=== PATIENT | female | born 1955 | race Caucasian/White ===

== ENCOUNTER 2018-07-26 20:23 | Emergency (ER) | payer MEDICAID ==
[~2018-07-26] VITALS: Ht 167.6 cm; Wt 67.1 kg
[~2018-07-26 20:23] MED LIST: ASPI-1169 PO; METO25TA20 PO; SERT50TA PO
--- NOTE | 2018-07-26 20:35 | NUR ---
TO BED 1 BIB EMS C/O REQUESTING DETOX, PT REPORTS HEAVY DRINKING X9 DAYS. LAST DRINK @ 1500 PER PT REPORT. PT AAOX4 NO ACUTE DISTRESS NOTED, RESP EVEN AND UNLABORED. PLACE PT ON CARDAIC MONITORING, CONTINUOUS POX. PENDING ER MD COLE.
[2018-07-26] MEDS ORDERED: IV NS 0.9% 1,000 ML BAG IV ONE (21:00)
[2018-07-26] MEDS ORDERED: ONDANSETRON HCL/PF 4 MG/2 ML VIAL IVP ONE (21:00)
[2018-07-26] MEDS ORDERED: PANTOPRAZOLE 40 MG VIAL IV ONE (21:00)
[2018-07-26 21:13] LABS: BASOPHILS # (AUTO) 0.1 /CMM (0.0-0.2); BASOPHILS % (AUTO) 0.6 % (0.0-2.0); EOSINOPHILS % (AUTO) 0.1 % (0.0-6.0); HEMATOCRIT 39 % (33-45); HEMOGLOBIN 13.5 g/dL (11.5-14.8); LYMPHOCYTES # (AUTO) 1.4 /CMM (0.8-4.8); LYMPHOCYTES % (AUTO) 13.3 % (20.0-44.0); MEAN CORPUSCULAR HGB CONC 34 g/dl (31.0-36.0); MEAN CORPUSCULAR VOLUME 92 fL (82-100); MONOCYTES # (AUTO) 0.5 /CMM (0.1-1.30); MONOCYTES % (AUTO) 4.8 % (2.0-12.0); NEUTROPHILS # (AUTO) 8.4 /CMM (1.8-8.9); NEUTROPHILS % (AUTO) 81.2 % (43.0-81.0); PLATELET COUNT (AUTO) 145 /CMM (150-450); RED BLOOD CELL COUNT(AUTO) 4.28 MIL/uL (4.0-5.2); WHITE BLOOD COUNT (AUTO) 10.3 K/uL (4.3-11.0)
[2018-07-26 21:21] LABS: CALCIUM, SERUM 10.4 mg/dL (8.5-10.1); CARBON DIOXIDE 28 mmol/L (21-32); CHLORIDE 102 mmol/L (98-107); CREATININE 0.7 mg/dL (0.6-1.3); GLUCOSE 99 mg/dL (74-106); POTASSIUM 3.6 mmol/L (3.5-5.1); SODIUM SERUM 143 mmol/L (136-145); UREA NITROGEN, BLOOD 19 mg/dL (7-18)
[2018-07-26 21:22] LABS: SERUM AMMONIA 4 umol/L (11-32)
[2018-07-26 21:27] LABS: ALANINE AMINOTRANSFERASE 50 U/L (12-78); ALBUMIN 4.2 g/dL (3.4-5.0); ALKALINE PHOSPHATASE 124 U/L (46-116); ASPARTATE AMINOTRANSFERASE 78 U/L (15-37); BILIRUBIN,DIRECT 0.2 mg/dL (0.0-0.2); BILIRUBIN,TOTAL 1.3 mg/dL (0.2-1.0); LIPASE 199 U/L (73-393); TOTAL PROTEIN, SERUM 7.9 g/dL (6.4-8.2)
[2018-07-26] MEDS ORDERED: ONDANSETRON HCL/PF 4 MG/2 ML VIAL ONE (21:30)
[2018-07-26] MEDS ORDERED: PANTOPRAZOLE 40 MG VIAL ONE (21:30)
--- NOTE | 2018-07-26 22:05 | NUR ---
PT RESTING QUIETLY, NO ACUTE DISTRESS NOTED, RESP EVEN AND UNLABORED. CALL LIGHT WITHIN REACH. WILL CONTINUE TO MONITOR PT CLOSELY.
[2018-07-26] MEDS ORDERED: ACETAMINOPHEN ES 500 MG TABLET ONE (22:44)
[2018-07-26] MEDS ORDERED: LORAZEPAM INJ 2 MG/ML VIAL ONE (22:47)
[2018-07-26] MEDS ORDERED: LORAZEPAM INJ 2 MG/ML VIAL IV ONE (23:00)
--- NOTE | 2018-07-27 00:29 | NUR ---
PT ASLEEP, NO ACUTE DISTRESS NOTED, RESP EVEN AND UNLABORED. CALL LIGHT WITHIN REACH. WILL CONTINUE TO MONITOR PT CLOSELY.
[2018-07-27 00:36] LABS: APPEARANCE,URINE SL CLOUDY (CLEAR); BILIRUBIN,URINE NEGATIVE (NEGATIVE); BLOOD, URINE 2+ Ery/uL (NEGATIVE); COLOR,URINE YELLOW (YELLOW); KETONES,URINE TRACE (NEGATIVE); LEUKOCYTE ESTERASE ,URINE 1+ (NEGATIVE); NITRITE, URINE NEGATIVE (NEGATIVE); PROTEIN,URINE TRACE mg/dl (NEGATIVE); UGLUCOSE NEGATIVE (NEGATIVE); UROBILINOGEN,URINE 0.2 EU/dL (0.2)
[2018-07-27 00:51] LABS: WBC,URINE 51-80 /HPF (0-3)
[2018-07-27 00:52] LABS: BACTERIA,URINE 2+ /HPF (None Seen); SQUAMOUS EPITHELIAL CELL,UR Few /HPF (None Seen)
[2018-07-27 00:53] LABS: MUCUS,URINE Few /LPF (None Seen)
--- NOTE | 2018-07-27 01:25 | NUR ---
ER MD AT BEDSIDE TO RE-EVAL PT WITH ORDERS RECEIVED. WILL CARRY OUT ORDERS.
[2018-07-27] MEDS ORDERED: LORAZEPAM INJ 2 MG/ML VIAL ONE (01:28)
[2018-07-27] MEDS ORDERED: LORAZEPAM INJ 2 MG/ML VIAL IV ONE (01:30)
--- NOTE | 2018-07-27 01:32 | NUR ---
RN AT BEDSIDE TO MEDICATE PT.
--- NOTE | 2018-07-27 03:26 | NUR ---
IV removed. Catheter intact and site benign. Pressure and 4x4 applied to site. No bleeding noted. Patient discharged to home in stable condition. Written and verbal after care instructions given. Patient verbalizes understanding of instruction. ambulatory with a steady gait noted. pt aaox4 no acute distress noted, resp even and unlabored. advice pt not to drive or operate any machinery due to alcohol intoxication. pt verbalize understanding.
[2018-07-27 03:27] VITALS: BP 129/61
== END 2018-07-27 03:28 | disposition home or self-care (01) ==
LOC: ER 20:25
DX: F10.10 Alcohol abuse, uncomplicated (principal); R00.0 Tachycardia, unspecified; R11.2 Nausea with vomiting, unspecified; Y90.7 Blood alcohol level of 200-239 mg/100 ml; Z85.3 Personal history of malignant neoplasm of breast; Z98.890 Other specified postprocedural states; Z60.2 Problems related to living alone; Z79.82 Long term (current) use of aspirin
CPT/HCPCS: 36415; 80048; 80076; 81001; 82140; 83690; 84484; 85025; 85730; 87077; 87086; 93005; 96361; 96374; 96375; 96376; 99284; A4606; C9113; G0480; J2060 ×2; J2405; J7030; Z7610; 81000-TC

== ENCOUNTER 2018-08-11 23:20 | Emergency (ER) | payer MEDICAID ==
[~2018-08-11] VITALS: Ht 165.1 cm; Wt 59.0 kg
--- NOTE | 2018-08-11 23:20 | NUR ---
PT BIBSELF COMPLAINING OF ALCOHOL WITHDRAWAL. PT STATES SHE WAS AT HOME WITH SON AND WAS FEELING VERY ANXIOUS AND COULD NOT STOP SHAKING. PT ALSO C/O MULTIPLE EPISODES OF VOMITTING PRODUCTION OPERATIONS ENGINEER. PT DENIES CHEST PAIN, SOB, HEADACHE, CHANGE IN VISION. PT AAOX3. RESPIRATIONS EVEN AND UNLABORED. SKIN WARM AND INTACT. VITAL SIGNS STABLE. PT APPEARS ANXIOUS. PLACED ON MONITOR, WILL CONTINUE TO MONITOR
--- NOTE | 2018-08-12 | NUR ---
MD AT BEDSIDE FOR EVALUATION
[2018-08-12] MEDS ORDERED: ONDANSETRON HCL/PF 4 MG/2 ML VIAL ONE (00:13)
[2018-08-12] MEDS ORDERED: LORAZEPAM INJ 2 MG/ML VIAL ONE (00:13)
--- NOTE | 2018-08-12 00:15 | NUR ---
IV INITIATED RIGHT FOREARM 18G LABS DRAWN FROM SITE. REGIONAL SALES ENGINEER AT BEDSIDE FOR COLLECTION. IV INTACT AND PATENT, PLACED ON SALINE LOCK
[2018-08-12 00:26] LABS: BASOPHILS # (AUTO) 0.1 /CMM (0.0-0.2); BASOPHILS % (AUTO) 1.1 % (0.0-2.0); EOSINOPHILS % (AUTO) 0.3 % (0.0-6.0); HEMATOCRIT 34 % (33-45); HEMOGLOBIN 11.5 g/dL (11.5-14.8); LYMPHOCYTES # (AUTO) 1.4 /CMM (0.8-4.8); LYMPHOCYTES % (AUTO) 27.5 % (20.0-44.0); MEAN CORPUSCULAR HGB CONC 34 g/dl (31.0-36.0); MEAN CORPUSCULAR VOLUME 96 fL (82-100); MONOCYTES # (AUTO) 0.4 /CMM (0.1-1.30); MONOCYTES % (AUTO) 7.8 % (2.0-12.0); NEUTROPHILS # (AUTO) 3.2 /CMM (1.8-8.9); NEUTROPHILS % (AUTO) 63.3 % (43.0-81.0); PLATELET COUNT (AUTO) 296 /CMM (150-450); RED BLOOD CELL COUNT(AUTO) 3.51 MIL/uL (4.0-5.2); WHITE BLOOD COUNT (AUTO) 5.1 K/uL (4.3-11.0)
[2018-08-12] MEDS ORDERED: LORAZEPAM INJ 2 MG/ML VIAL IV ONE (00:30)
[2018-08-12] MEDS ORDERED: IV NS 0.9% 1,000 ML BAG IV ONE (00:30)
[2018-08-12] MEDS ORDERED: ONDANSETRON HCL/PF 4 MG/2 ML VIAL IVP ONE (00:30)
[2018-08-12 00:39] LABS: CALCIUM, SERUM 9.2 mg/dL (8.5-10.1); CREATININE 0.6 mg/dL (0.6-1.3); POTASSIUM 4.4 mmol/L (3.5-5.1)
[2018-08-12 00:54] LABS: ALBUMIN 3.5 g/dL (3.4-5.0); BILIRUBIN,DIRECT 0.1 mg/dL (0.0-0.2); BILIRUBIN,TOTAL 0.2 mg/dL (0.2-1.0); TOTAL PROTEIN, SERUM 6.6 g/dL (6.4-8.2)
--- NOTE | 2018-08-12 01:30 | NUR ---
PT RESTING COMFORTABLY IN BED. VITAL SIGNS STABLE. WILL CONTINUE TO MONITOR
--- NOTE | 2018-08-12 03:26 | NUR ---
CALLED PT'S SON FOR INSTRUMENT AND CONTROLS TECHNICIAN. LEFT MESSAGE. WAITING FOR CALL BACK
[2018-08-12] MEDS ORDERED: DIAZEPAM 5 MG TABLET ONE (03:50)
--- NOTE | 2018-08-12 03:55 | NUR ---
Patient discharged to home in stable condition. Written and verbal after care instructions given. Patient verbalizes understanding of instruction. IV removed. Catheter intact and site benign. Pressure and 4x4 applied to site. No bleeding noted. Pt ambulatory with a steady gait
[2018-08-12 03:56] VITALS: BP 95/61
[2018-08-12] MEDS ORDERED: DIAZEPAM 10 MG TABLET PO ONE (04:00)
== END 2018-08-12 03:57 | disposition home or self-care (01) ==
LOC: ER 23:23
DX: F10.229 Alcohol dependence with intoxication, unspecified (principal); F41.9 Anxiety disorder, unspecified; R11.2 Nausea with vomiting, unspecified; Y90.7 Blood alcohol level of 200-239 mg/100 ml; Z85.3 Personal history of malignant neoplasm of breast; Z98.82 Breast implant status; Z98.890 Other specified postprocedural states; Z60.2 Problems related to living alone; Z79.82 Long term (current) use of aspirin
CPT/HCPCS: 36415; 80048-TC; 80076-TC; 83690-TC; 85025-TC; G0480; J2060; J2405; J7030

== ENCOUNTER 2019-09-17 19:41 | Emergency (ER) | payer MEDICAID ==
[~2019-09-17] VITALS: Ht 167.6 cm; Wt 59.0 kg
--- NOTE | 2019-09-17 19:41 | NUR ---
CAME IN FOR "SPINAL PAIN RADIATES TO HEAD, EXTREME PAIN BEHIND MY EYEBALL". SEEN AT [facility] X2 THIS MONTH WITH SPINAL TAP AND WAS SEEN BY PMD TODAY AND [facility]. TO ER BED 7, HOOKED TO MONITOR, CHANGED TO HOSP GOWN, WARM BLANKET PROVIDED, AWAITING MD COLE.
--- NOTE | 2019-09-17 19:58 | NUR ---
DR HINTON AT BEDSIDE
[2019-09-17] MEDS ORDERED: MORPHINE SULFATE INJ 4 MG/ML DISP.SYRIN ONE (20:06)
--- NOTE | 2019-09-17 20:20 | NUR ---
CALLED [facility] TO REQUEST MEDICAL RECORDS FOR PT.
[2019-09-17] MEDS ORDERED: ONDANSETRON HCL/PF 4 MG/2 ML VIAL ONE (20:21)
[2019-09-17] MEDS ORDERED: MORPHINE SULFATE INJ 2 MG/ML DISP.SYRIN IV ONE (20:30)
[2019-09-17] MEDS ORDERED: IV NS 0.9% 1,000 ML BAG IV ONE (20:30)
[2019-09-17] MEDS ORDERED: ONDANSETRON HCL/PF 4 MG/2 ML VIAL IVP ONE (20:30)
[2019-09-17 20:43] LABS: BASOPHILS % (AUTO) 0.8 % (0.0-2.0); EOSINOPHILS % (AUTO) 1.5 % (0.0-6.0); HEMATOCRIT 32 % (33-45); HEMOGLOBIN 10.8 g/dL (11.5-14.8); LYMPHOCYTES # (AUTO) 1.5 /CMM (0.8-4.8); LYMPHOCYTES % (AUTO) 36.1 % (20.0-44.0); MEAN CORPUSCULAR HGB CONC 34 g/dl (31.0-36.0); MEAN CORPUSCULAR VOLUME 97 fL (82-100); MONOCYTES # (AUTO) 0.3 /CMM (0.1-1.30); MONOCYTES % (AUTO) 7.8 % (2.0-12.0); NEUTROPHILS # (AUTO) 2.3 /CMM (1.8-8.9); NEUTROPHILS % (AUTO) 53.8 % (43.0-81.0); PLATELET COUNT (AUTO) 139 /CMM (150-450); RED BLOOD CELL COUNT(AUTO) 3.33 MIL/uL (4.0-5.2); WHITE BLOOD COUNT (AUTO) 4.2 K/uL (4.3-11.0)
--- NOTE | 2019-09-17 20:54 | NUR ---
WHEELED OUT VIA RNEY FOR CT SCAN
[2019-09-17 20:58] LABS: CALCIUM, SERUM 9.2 mg/dL (8.5-10.1); POTASSIUM 3.3 mmol/L (3.5-5.1)
[2019-09-17 21:03] LABS: ALBUMIN 3.5 g/dL (3.4-5.0); BILIRUBIN,DIRECT 0.1 mg/dL (0.0-0.2); BILIRUBIN,TOTAL 0.4 mg/dL (0.2-1.0); TOTAL PROTEIN, SERUM 6.3 g/dL (6.4-8.2)
--- NOTE | 2019-09-17 22:09 | NUR ---
IV removed. Catheter intact and site benign. Pressure and 4x4 applied to site. No bleeding noted.Patient discharged to home in stable condition. Written and verbal after care instructions given. Patient verbalizes understanding of instruction.
[2019-09-17 22:10] VITALS: BP 124/86
== END 2019-09-17 22:11 | disposition home or self-care (01) ==
LOC: ER 19:41
DX: R51 Headache (principal); M54.5 Low back pain; F10.10 Alcohol abuse, uncomplicated; R00.1 Bradycardia, unspecified; I44.4 Left anterior fascicular block; Y90.9 Presence of alcohol in blood, level not specified; Z98.890 Other specified postprocedural states; Z60.2 Problems related to living alone; Z79.82 Long term (current) use of aspirin; Z79.899 Other long term (current) drug therapy; Z85.3 Personal history of malignant neoplasm of breast
CPT/HCPCS: 36415; 70450; 71045; 72131; 80048; 80076; 85025; 85730; 93005; 96374; 96375; 99284; J2270; J2405; J7030

== ENCOUNTER 2019-09-19 04:05 | Emergency (ER) | payer MEDICAID ==
[~2019-09-19] VITALS: Ht 167.6 cm; Wt 59.0 kg
[2019-09-19 04:05] VITALS: BP 120/67
--- NOTE | 2019-09-19 04:42 | NUR ---
Pt left w/ son without discharge instructions.
== END 2019-09-19 04:45 | disposition home or self-care (01) ==
LOC: ER 04:05
DX: F10.129 Alcohol abuse with intoxication, unspecified (principal); G89.29 Other chronic pain; M54.9 Dorsalgia, unspecified; Z60.2 Problems related to living alone; Z85.3 Personal history of malignant neoplasm of breast; Z79.899 Other long term (current) drug therapy; Z79.82 Long term (current) use of aspirin; Y90.9 Presence of alcohol in blood, level not specified

== ENCOUNTER 2021-04-08 17:16 | Inpatient (IN) | payer MEDICARE, OTHER ==
[~2021-04-08] VITALS: Ht 167.6 cm; Wt 59.9 kg
[2021-04-08] MEDS ORDERED: ONDANSETRON HCL/PF 4 MG/2 ML VIAL ONE (17:25)
[2021-04-08] MEDS ORDERED: ONDANSETRON HCL/PF 4 MG/2 ML VIAL IVP ONE (17:30)
[2021-04-08] MEDS ORDERED: IV NS 0.9% 1,000 ML BAG IV ONE (17:30)
[2021-04-08 17:45] LABS: BASOPHILS % (AUTO) 0.4 % (0.0-2.0); HEMATOCRIT 35 % (33-45); LYMPHOCYTES # (AUTO) 1.1 K/uL (0.8-4.8); LYMPHOCYTES % (AUTO) 13.9 % (20.0-44.0); MEAN CORPUSCULAR HGB CONC 34 g/dl (31.0-36.0); MEAN CORPUSCULAR VOLUME 93 fL (82-100); MONOCYTES # (AUTO) 0.6 K/uL (0.1-1.30); MONOCYTES % (AUTO) 8.5 % (2.0-12.0); NEUTROPHILS # (AUTO) 5.8 K/uL (1.8-8.9); NEUTROPHILS % (AUTO) 77.2 % (43.0-81.0); PLATELET COUNT (AUTO) 141 K/uL (150-450); RED BLOOD CELL COUNT(AUTO) 3.75 MIL/uL (4.0-5.2); WHITE BLOOD COUNT (AUTO) 7.6 K/uL (4.3-11.0)
[2021-04-08 17:53] LABS: CREATININE 0.7 mg/dL (0.6-1.3); POTASSIUM 3.5 mmol/L (3.5-5.1)
[2021-04-08 18:00] LABS: ALBUMIN 4.1 g/dL (3.4-5.0); BILIRUBIN,DIRECT 0.3 mg/dL (0.0-0.2); BILIRUBIN,TOTAL 1.1 mg/dL (0.2-1.0); TOTAL PROTEIN, SERUM 7.1 g/dL (6.4-8.2)
[2021-04-08 18:30] LABS: BILIRUBIN,URINE NEGATIVE (NEGATIVE); COLOR,URINE YELLOW (YELLOW); LEUKOCYTE ESTERASE ,URINE TRACE (NEGATIVE); NITRITE, URINE NEGATIVE (NEGATIVE); PROTEIN,URINE 100 mg/dl (NEGATIVE); UGLUCOSE NEGATIVE (NEGATIVE)
[2021-04-08 18:38] LABS: RBC,URINE 21-50 /HPF (0-2)
[2021-04-08 18:39] LABS: BACTERIA,URINE 3+ /HPF (None Seen); SQUAMOUS EPITHELIAL CELL,UR 0-2 /HPF (None Seen)
--- NOTE | 2021-04-08 19:05 | NUR ---
pt bibra c/o chest pain, 2 empty bottles of alcohol found on scene. Pt aaox4 breathing evenly and unlabored. Pt attached to monitor and pox. Skin is warm and dry. pt given blanket and call light within reach
--- NOTE | 2021-04-08 20:45 | NUR ---
verbal order 1L NS
[2021-04-08] MEDS ORDERED: ASPIRIN EC 81 MG TABLET.DR PO ONE (21:42)
--- NOTE | 2021-04-08 21:57 | NUR ---
EPIC PAGED FOR PANEL
[2021-04-08] MEDS ORDERED: ASPIRIN 81 MG TAB.CHEW PO ONE (22:00)
--- NOTE | 2021-04-08 22:00 | NUR ---
MIKI MOHAMUD SPEAKING WITH DR. AWAN.
--- NOTE | 2021-04-08 22:12 | NUR ---
CALLED NURSING SUGAR REFINERY SUPERVISOR FOR BED.
[2021-04-08] MEDS ORDERED: MAGNESIUM HYDROXIDE 30 ML UDC PO PRN (22:30)
[2021-04-08] MEDS ORDERED: MAG HYDROX/AL HYDROX/SIMETH 30 ML UDC PO PRN (22:30)
[2021-04-08] MEDS ORDERED: Z GUARD REMEDY 2 OZ OINT TP PRN (22:30)
--- NOTE | 2021-04-08 22:33 | NUR ---
harry sent to lab
--- NOTE | 2021-04-08 22:33 | NUR ---
lab at bedside
--- NOTE | 2021-04-08 23:44 | NUR ---
gave report to ALVERTO Dietrich for pamela
[2021-04-09] MEDS ORDERED: CEFTRIAXONE 1 G in IV D5W 50 ML IV ONE
[2021-04-09] MEDS ORDERED: IV NS 0.9% 500 ML BAG IV ONE (00:30)
[2021-04-09] MEDS: IV D5/0.45 NACL 1,000 ML IV PRN ×3 (00:42→19:49)
[2021-04-09 01:00] VITALS: BP 95/54
[2021-04-09] MEDS: ENOXAPARIN SODIUM 40 MG/0.4 ML DISP.SYRIN SQ SCH ×2 (01:07→21:44)
[2021-04-09] MEDS ORDERED: TIZA4CAP PO (01:33)
[2021-04-09] MEDS ORDERED: IBUP-1953 PO (01:33)
[2021-04-09] MEDS ORDERED: ANAS1TAB50 PO (01:33)
[2021-04-09] MEDS ORDERED: MELA5TAB PO (01:33)
[2021-04-09] MEDS ORDERED: CEFTRIAXONE 1 G VIAL ONE (02:14)
[2021-04-09] MEDS: LORAZEPAM INJ 2 MG/ML VIAL IV PRN ×4 (02:46→23:22)
--- NOTE | 2021-04-09 02:56 | NUR ---
MS/TELE/RN PATIENT VERY AGITATED, RESTLESS AND CLUMSY, SAYING " PLEASE HELP ME", ATIVAN 1 MG IVP WAS GIVEN ORDERED. WILL MONITOR.
--- NOTE | 2021-04-09 02:58 | NUR ---
MS/TELE/RN ADMITTED PATIENT FROM [facility] AT 0025 VIA [facility]. PATIENT WAS AWAKE, ALERT, ORIENT, MILDLY ANXIOUS, NO C/O PAIN, NO DISTRESS NOTED, MADE COMFORTABLE IN BED, ADMISSION DONE PER PROTOCOL, PATIENT REFUSED PHYSICAL ASSESSMENT BUT AGREED TO HAVE PICTURE TAKEN ON BRUISES ON LEFT KNEE AND LEFT ELBOW. PLAN OF CARE DISCUSSED, VERBALISED UNDERSTANDING AND AGREEMENT, TAUGHT THE USE OF CALL LIGHT AND PLACED AT BEDSIDE WITHIN REACH. DIOR OF $1,645 WAS NOTED AND AGREED TO SEND IT TO [facility], MEDICATIONS BOTTLES NOTED AND WILL BE SENT TO PHARMACY. FALL PRECAUTIONS PER PROTOCOL WAS IMPLEMENTED. WILL MONITOR.
--- NOTE | 2021-04-09 03:51 | NUR ---
MS/TELE/RN PATIENT IS SLEEPING, APPEAR COMFORTABLE, NO SIGNS OF DISTRESS NOTED, CALL LIGHT IN REACH, WILL CONTINUE TO MONITOR.
[2021-04-09] MEDS ORDERED: TRAZ-257 PO (03:54)
--- NOTE | 2021-04-09 06:21 | NUR ---
MS/TELE/RN PATIENT IS STILL SLEEPING AT THIS TIME, APPEAR COMFORTABLE, NO SIGNS OF DISTRESS NOTED, CALL LIGHT IN REACH, ALL NEEDS ATTENDED AT THIS TIME, WILL CONTINUE TO MONITOR.
[2021-04-09 06:28] LABS: BASOPHILS % (AUTO) 0.6 % (0.0-2.0); EOSINOPHILS % (AUTO) 0.6 % (0.0-6.0); HEMATOCRIT 26 % (33-45); MEAN CORPUSCULAR HGB CONC 34 g/dl (31.0-36.0); MEAN CORPUSCULAR VOLUME 95 fL (82-100); MONOCYTES # (AUTO) 0.2 K/uL (0.1-1.30); MONOCYTES % (AUTO) 5.5 % (2.0-12.0); NEUTROPHILS # (AUTO) 2.7 K/uL (1.8-8.9); NEUTROPHILS % (AUTO) 68.3 % (43.0-81.0); PLATELET COUNT (AUTO) 93 K/uL (150-450); RED BLOOD CELL COUNT(AUTO) 2.77 MIL/uL (4.0-5.2); WHITE BLOOD COUNT (AUTO) 3.9 K/uL (4.3-11.0)
[2021-04-09 06:54] LABS: BILIRUBIN,TOTAL 0.8 mg/dL (0.2-1.0); CREATININE 0.7 mg/dL (0.6-1.3); MAGNESIUM 1.8 mg/dL (1.8-2.4); PHOSPHORUS 1.8 mg/dL (2.5-4.9); POTASSIUM 2.9 mmol/L (3.5-5.1); TOTAL PROTEIN, SERUM 5.4 g/dL (6.4-8.2)
--- NOTE | 2021-04-09 07:16 | NUR ---
MS/TELE/RN PATIENT IS AWAKE, VERY ANXIOUS, STATING SHE WAS SHAKING AND ASKING FOR ATIVAN, ATIVAN 1 MG IVP WAS GIVEN ORDERED. WILL MONITOR.
[2021-04-09 08:00] VITALS: BP 84/54
[2021-04-09 08:47] LABS: LYMPHOCYTES % (MANUAL) 28 % (16-48); MONOCYTES % (MANUAL) 3 % (0-11.0); NEUTROPHILS % (MANUAL) 69 (42-76)
[2021-04-09] MEDS ORDERED: THIAMINE HCL 100 MG TABLET PO ONE (09:00)
[2021-04-09] MEDS: PANTOPRAZOLE 40 MG VIAL IV SCH (09:12)
[2021-04-09] MEDS: FOLIC ACID 1 MG TABLET PO SCH (09:13)
[2021-04-09] MEDS: ASPIRIN EC 325 MG TABLET.DR PO SCH (09:13)
[2021-04-09] MEDS: POTASSIUM CL. PREMIX PERIPHER. 50 ML IV SCH ×4 (09:50→17:01)
[2021-04-09] MEDS ORDERED: K PHOS NEUTRAL 250 MG TABLET PO ONE (10:30)
[2021-04-09] MEDS ORDERED: POTASSIUM CHLORIDE 20 MEQ TAB.PRT.SR PO SCH (10:30)
[2021-04-09] MEDS ORDERED: IV NS 0.9% 1,000 ML IV ONE (11:00)
--- NOTE | 2021-04-09 12:55 | NUR ---
denice tyson in and given bolus as per orders.additionally in process of kcl iv boluses and k-dur and neutra phos replacements.
[2021-04-09 16:11] VITALS: BP 117/70
--- NOTE | 2021-04-09 16:51 | NUR ---
given ativan for nerves.
[2021-04-09 20:00] VITALS: BP 106/53
--- NOTE | 2021-04-09 20:16 | NUR ---
MS/TELE/RN RECEIVED PATIENT IN BED SLEEPING, APPEAR COMFORTABLE, NO DISTRESS NOTED, IVF INFUSING, CALL LIGHT IN REACH, WILL MONITOR.
[2021-04-09] MEDS: CEFTRIAXONE 1 G in IV D5W 50 ML IV SCH (21:27)
--- NOTE | 2021-04-09 23:29 | NUR ---
MS/TELE/RN PATIENT IS AWAKE, ANXIOUS, CLUMSY AND SHAKING, PATIENT ASKED FOR ATIVAN, ATIVAN 1 MG IVP WAS GIVEN ORDERED. BP 142/100, HR 103. WILL MONITOR.
[2021-04-10] VITALS: BP 142/100
--- NOTE | 2021-04-10 00:47 | NUR ---
MS/TELE/RN PATIENT IS SLEEPING AT THIS TIME, APPEARS COMFORTABLE, NO SIGNS OF DISTRESS NOTED, CALL LIGHT IN REACH. WILL CONTINUE TO MONITOR.
[2021-04-10 04:00] VITALS: BP 134/77
[2021-04-10] MEDS: IV D5/0.45 NACL 1,000 ML IV PRN ×2 (05:01→16:38)
--- NOTE | 2021-04-10 06:09 | NUR ---
MS/TELE/RN PATIENT IS SLEEPING, APPEAR COMFORTABLE, NO SIGNS OF DISTRESS NOTED, CALL LIGHT IN REACH, ALL NEEDS ATTENDED AT THIS TIME, WILL CONTINUE TO MONITOR.
[2021-04-10 06:52] LABS: BASOPHILS % (AUTO) 0.7 % (0.0-2.0); EOSINOPHILS % (AUTO) 1.3 % (0.0-6.0); HEMATOCRIT 27 % (33-45); HEMOGLOBIN 9.2 g/dL (11.5-14.8); LYMPHOCYTES # (AUTO) 1.2 K/uL (0.8-4.8); LYMPHOCYTES % (AUTO) 30.4 % (20.0-44.0); MEAN CORPUSCULAR HGB CONC 34 g/dl (31.0-36.0); MEAN CORPUSCULAR VOLUME 96 fL (82-100); MONOCYTES # (AUTO) 0.2 K/uL (0.1-1.30); NEUTROPHILS # (AUTO) 2.5 K/uL (1.8-8.9); NEUTROPHILS % (AUTO) 62.6 % (43.0-81.0); PLATELET COUNT (AUTO) 85 K/uL (150-450)
--- NOTE | 2021-04-10 07:24 | NUR ---
APPLICATION DEVELOPMENT PROJECT MANAGER OPENING NOTES RECEIVED PATIENT RESTING IN BED. A/O X4. ABLE TO MAKE NEEDS KNOWN, DENIES PAIN OR ANY DISCOMFORTS AT THIS TIME. ON ROOM AIR, BREATHING EVEN AND UNLABORED, NO SOB NOTED. CURRENT TELE-MONITOR READING IS SINUS RHYTHM, HR ON THE 80'S, NO C/O CARDIAC DISTRESS VOICED. IV ACCESS ON LEFT WRIST G#20 INTACT WITH IVF OF D5W 1/2 NS AT 125ML/HR INFUSING WELL, NO S/S OF INFILTRATIONS AT SITE NOTED. SAFETY MEASURES IN PLACE: BED IN LOWEST LOCKED POSITION WITH SIDE-RAILS UP X2. CALL LIGHT W/IN REACH. WILL CONTINUE TO MONITOR PT ACCORDINGLY.
[2021-04-10 07:34] LABS: CALCIUM, SERUM 8.6 mg/dL (8.5-10.1); CREATININE 0.6 mg/dL (0.6-1.3); MAGNESIUM 1.7 mg/dL (1.8-2.4); PHOSPHORUS 3.5 mg/dL (2.5-4.9); POTASSIUM 3.6 mmol/L (3.5-5.1)
[2021-04-10 08:00] VITALS: BP 147/79
[2021-04-10] MEDS: ASPIRIN EC 325 MG TABLET.DR PO SCH (08:24)
[2021-04-10] MEDS: ANASTROZOLE 1 MG TABLET PO SCH (08:24)
[2021-04-10] MEDS: PANTOPRAZOLE 40 MG VIAL IV SCH (08:24)
[2021-04-10] MEDS: FOLIC ACID 1 MG TABLET PO SCH (08:24)
[2021-04-10] MEDS: LORAZEPAM INJ 2 MG/ML VIAL IV PRN (09:19)
--- NOTE | 2021-04-10 09:24 | NUR ---
RN NOTES PT NOTED VERY ANXIOUS AND REQUESTED FOR HER ATIVAN. PRN ATIVAN 1MG/0.5 ML IVP ADMINISTERED AT 0919. WILL CONTINUE TO MONITOR.
[2021-04-10] MEDS: Magnesium 1GM/D5W 100ML PREMIX 100 ML IV SCH ×2 (11:04→12:16)
[2021-04-10 12:00] VITALS: BP 124/71
[2021-04-10 16:00] VITALS: BP 128/84
--- NOTE | 2021-04-10 17:29 | NUR ---
RN NOTES PT VERY ANXIOUS AND ASKING FOR HER ATIVAN IV. INFORMED HER THAT HER ATIVAN 1MG IV WAS DISCONTINUED. SHE SAID TO ASK HER HOSPITALIST FOR ANYTHING TO CALM HER DOWN BECAUSE SHE'S VERY ANXIOUS AND RESTLESS. HELEN CHANDLER MADE AWARE WITH ORDER TO GIVE ATIVAN 1MG PO X 1 DOSE ONLY. MED WAS GIVEN ORDERED AT 1724.
[2021-04-10] MEDS ORDERED: LORAZEPAM 1 MG TABLET PO ONE (17:30)
--- NOTE | 2021-04-10 18:44 | NUR ---
WAX POT TENDER CLOSING NOTES PATIENT IN BED WATCHING TV AT THIS TIME. HOB ELEVATED. A/O X4. ABLE TO MAKE NEEDS KNOWN. ON ROOM AIR, BREATHING EVEN AND UNLABORED, NO SOB NOTED DURING THE SHIFT. ON EXTERNAL CARDIAC TELE-MONITOR WITH CURRENT READING OF NSR, HR ON THE 70-80'S, NO C/O CARDIAC DISTRESS VOICED. IV ACCESS ON RFA G#22 INTACT AND PATENT, IVF OF D5 1/2 NS AT 125ML/HR INFUSING WELL, NO S/S OF INFILTRATIONS AT SITE NOTED. ALL NEEDS AND CARE ATTENDED WELL. SAFETY KEPT MEASURES KEPT IN PLACE: BED IN LOWEST LOCKED POSITION WITH SIDE-RAILS UP X2. CALL LIGHT W/IN REACH. WILL ENDORSE RUBÉN TO DATA ADMINISTRATOR NURSE.
--- NOTE | 2021-04-10 19:30 | NUR ---
RN OPENING NOTE PATIENT IN SITTING UP ON THE BED, PATIENT DOES NOT REPORT OF ANY PAIN AT THIS TIME. PATIENT IS ABLE TO MAKE NEEDS KNOWN, A/O X 4 AT THIS TIME. PATIENT IS CALM AND REPORTS NO PAIN. TELE MONITOR READS SR 85 BPM. BREATHING EVEN AND UNLABORED, TOLERATING RA AT THIS TIME. RFA 22 G RUNNING D5 1/2 NS AT 125 ML/HR. SAFETY MEASURES IN PLACE: BED LOCKED AND IN LOWEST POSITION, CALL LIGHT WITHIN REACH, SIDE RAILS UP, BED ALARM ON. WILL MONITOR PATIENT CLOSELY.
[2021-04-10 20:31] VITALS: BP 137/84
[2021-04-10] MEDS: CEFTRIAXONE 1 G in IV D5W 50 ML IV SCH (20:48)
[2021-04-10] MEDS: ENOXAPARIN SODIUM 40 MG/0.4 ML DISP.SYRIN SQ SCH (20:52)
[2021-04-10] MEDS: ACETAMINOPHEN 325 MG TABLET PO PRN (22:00)
[2021-04-10] MEDS: ONDANSETRON HCL/PF 4 MG/2 ML VIAL IVP PRN (22:00)
--- NOTE | 2021-04-10 22:00 | NUR ---
RN NOTE PATIENT GIVEN ZOFRAN AND TYLENOL. PATIENT VOMITTED TWICE AND REPORTING NAUSEA WELL LEFT ARM PAIN.
[2021-04-11 00:37] VITALS: BP 138/74
[2021-04-11] MEDS: ONDANSETRON HCL/PF 4 MG/2 ML VIAL IVP PRN ×2 (04:03→10:17)
[2021-04-11] MEDS: IV D5/0.45 NACL 1,000 ML IV PRN (04:28)
[2021-04-11 04:39] VITALS: BP 126/72
[2021-04-11 06:25] LABS: BASOPHILS % (AUTO) 0.4 % (0.0-2.0); EOSINOPHILS % (AUTO) 1.7 % (0.0-6.0); HEMATOCRIT 29 % (33-45); HEMOGLOBIN 9.9 g/dL (11.5-14.8); LYMPHOCYTES # (AUTO) 0.9 K/uL (0.8-4.8); LYMPHOCYTES % (AUTO) 18.6 % (20.0-44.0); MEAN CORPUSCULAR HGB CONC 34 g/dl (31.0-36.0); MEAN CORPUSCULAR VOLUME 95 fL (82-100); MONOCYTES # (AUTO) 0.3 K/uL (0.1-1.30); MONOCYTES % (AUTO) 5.2 % (2.0-12.0); NEUTROPHILS # (AUTO) 3.6 K/uL (1.8-8.9); NEUTROPHILS % (AUTO) 74.1 % (43.0-81.0); PLATELET COUNT (AUTO) 85 K/uL (150-450); RED BLOOD CELL COUNT(AUTO) 3.03 MIL/uL (4.0-5.2); WHITE BLOOD COUNT (AUTO) 4.9 K/uL (4.3-11.0)
[2021-04-11 06:40] LABS: CALCIUM, SERUM 8.8 mg/dL (8.5-10.1); CREATININE 0.7 mg/dL (0.6-1.3); PHOSPHORUS 3.4 mg/dL (2.5-4.9); POTASSIUM 3.3 mmol/L (3.5-5.1)
--- NOTE | 2021-04-11 06:46 | NUR ---
RN CLOSING NOTE PATIENT IN BED, EASILY AWAKENED. PATIENT IS MILDLY NAUSEOUS. A/O X 4, ABLE TO MAKE NEEDS KNOWN. PATIENT'S TELE MONITOR READS SR 69 BPM. PATIENT AMBULATES WITH 1 PERSON ASSISTANCE. D5 1/2 NS RUNNING AT 125 ML/HR ON THE RFA 22 G. PATENT AND INTACT. NAUSEA MANAGED WITH ZOFRAN. EDUCATED PATIENT ON NAUSEA AND WITHDRAWAL SYMPTOMS MANAGEMENT. SAFETY MEASURES IMPLEMENTED, ALL NEEDS MET AND ATTENDED, ALL ORDERS CARRIED OUT. WILL ENDORSE TO DAY SHIFT NURSE FOR RUBÉN.
--- NOTE | 2021-04-11 07:27 | NUR ---
HEARING AID TECHNICIAN OPENING NOTES RECEIVED PATIENT AWAKE IN BED IN NO ACUTE SIGNS OF DISTRESS. A/O X4. ABLE TO MAKE NEEDS KNOWN, DENIES PAIN OR ANY DISCOMFORTS AT THIS TIME. ON ROOM AIR, BREATHING EVEN AND UNLABORED, NO SOB NOTED. CURRENT TELE-MONITOR READING IS SINUS RHYTHM, HR 70, NO C/O CARDIAC DISTRESS VOICED. IV ACCESS ON RFA G#22 INTACT WITH IVF OF D5 1/2 NS AT 125ML/HR INFUSING WELL, NO S/S OF INFILTRATIONS AT SITE NOTED. SAFETY MEASURES IN PLACE: BED IN LOWEST LOCKED POSITION WITH SIDE-RAILS UP X2. CALL LIGHT W/IN REACH. WILL CONTINUE TO MONITOR PT
[2021-04-11 08:00] VITALS: BP 132/84
[2021-04-11] MEDS: ANASTROZOLE 1 MG TABLET PO SCH (08:16)
[2021-04-11] MEDS: FOLIC ACID 1 MG TABLET PO SCH (08:16)
[2021-04-11] MEDS: ASPIRIN EC 325 MG TABLET.DR PO SCH (08:16)
[2021-04-11] MEDS: ACETAMINOPHEN 325 MG TABLET PO PRN (08:21)
--- NOTE | 2021-04-11 08:22 | NUR ---
RN NOTES PT C/O PAIN ON HER LEFT SHOULDER AND LEFT ARM STATED THAT SHE'S HAVING THIS PAIN FOR A LONG TIME ON AND OFF. PRN TYLENOL 650 MG PO GIVEN AT 0822. WILL CONTINUE TO MONITOR.
[2021-04-11] MEDS ORDERED: PANTOPRAZOLE 40 MG TABLET.DR PO SCH (09:00)
--- NOTE | 2021-04-11 10:19 | NUR ---
RN NOTES PATIENT C/O OF NAUSEA. PRN ZOFRAN PRN ZOFRAN 4MG/2ML IVP ADMINISTRED AT 1017. WILL MONITOR AND REASSESS PT.
[2021-04-11] MEDS ORDERED: POTASSIUM CHLORIDE 20 MEQ TAB.PRT.SR PO ONE (10:30)
--- NOTE | 2021-04-11 10:30 | NUR ---
SS note: SS consult requested for substance use and living arrangement. SS will follow up at a later time.
[2021-04-11] MEDS ORDERED: CEPH500C2 PO (12:03)
[2021-04-11] MEDS ORDERED: Folic Acid PO (12:03)
--- NOTE | 2021-04-11 16:38 | NUR ---
RN DISCHARGED NOTES PT DISCHARGED HOME IN STABLE CONDITION. SHE A/O X4. ALL NEEDS ATTENDED WELL. V/S TAKEN, RECORDED AND STABLE. PHOTOS OF SKIN ISSUES TAKEN FROM PREVIOUS SHIFT. ALL BELONGINGS ACCOUNTED FOR AND SIGNED FORM. MONEY FROM NURSING OFFICE [facility] AMOUNTING $1,685 COUNTED AND WAS EXACT AMOUNT. PT'S HOME MEDS FROM PHARMACY GIVEN TO PT. IV ACCESS ON RFA G#22 REMOVED WITH NO ACTIVE BLEEDING NOTED, DRY DRESSING APPLIED TO SITE. NAME ARMBAND REMOVED. PT EDUCATED ON ALCOHOL CESSATION AND DISCHARGE INSTRUCTION, SHE VERBALIZED UNDERSTANDING. PT LEFT UNIT VIA WHEELCHAIR AT 1600 ACCOMPANIED BY ALBINO HANDLEY. PT TOOK TAXI TO GO HOME. CHARGE NURSE AWARE OF DISCHARGE.
== END 2021-04-11 16:40 | disposition home or self-care (01) | DRG 917 ==
LOC: ER 17:40 → TELE 23:47 → MED 04-11 10:08
PROVIDERS: ADMIT Hospitalist; ATTEND Registered Nurse
DX: T51.0X1A Toxic effect of ethanol, accidental (unintentional), initial encounter (principal); I21.4 Non-ST elevation (NSTEMI) myocardial infarction; G92 Toxic encephalopathy; N39.0 Urinary tract infection, site not specified; Z20.822 Contact with and (suspected) exposure to COVID-19; Y90.8 Blood alcohol level of 240 mg/100 ml or more; Z59.0 Homelessness; Z85.3 Personal history of malignant neoplasm of breast; Z79.82 Long term (current) use of aspirin; Z92.21 Personal history of antineoplastic chemotherapy; Z79.899 Other long term (current) drug therapy; Z92.3 Personal history of irradiation; B96.20 Unspecified Escherichia coli [E. coli] as the cause of diseases classified elsewhere; Y92.9 Unspecified place or not applicable; Z87.891 Personal history of nicotine dependence; F10.129 Alcohol abuse with intoxication, unspecified
CPT/HCPCS: 36415; 71045-TC; 80048-TC; 80053-TC; 80061-TC; 80076-TC; 81001; 82140-TC; 83690-TC; 83735-TC; 84100-TC; 84484-TC; 85025-TC; 87081-TC; 87086-TC; 87186-TC; 93307-TC; 97116-TC; 97530-TC; C9113; C9803; G0378; G0480; J0696; J1650; J2060; J2405; J3475; J3480; J3490; J7030; J7060